=== PATIENT | female | born 1960 | race Hispanic/Latino ===

== ENCOUNTER 2021-03-03 05:56 | Observation (INO) | payer OTHER ==
[2021-03-02 15:03] LABS: BASOPHILS % (AUTO) 0.4 % (0.0-5.0); EOSINOPHILS % (AUTO) 1.9 % (0.0-8.0); HEMATOCRIT 44.5 % (36-48); LYMPHOCYTES % (AUTO) 37.8 % (21.0-51.0); MEAN CORPUSCULAR HEMOGLOBIN 28.9 pg (27.0-33.0); MEAN CORPUSCULAR HGB CONC 32.6 g/dL (32.0-36.0); MEAN CORPUSCULAR VOLUME 88.8 fL (79-99); MONOCYTES % (AUTO) 6.1 % (3.0-13.0); NEUTROPHILS % (AUTO) 53.7 % (40.0-77.0); PLATELET COUNT (AUTO) 206 K/uL (130-400); RED BLOOD CELL COUNT(AUTO) 5.01 MIL/uL (4.00-5.50); WHITE BLOOD COUNT (AUTO) 6.7 K/uL (4.8-10.8)
[2021-03-02 16:39] VITALS: BP 167/79
[2021-03-03] VITALS (24 sets, daily range): BP systolic 121–174; BP diastolic 51–83
[~2021-03-03] VITALS: Ht 160 cm; Wt 75.9 kg
[~2021-03-03 05:56] MED LIST: CEFAZOLIN SODIUM 1 GM VIAL ONE; LACTATED RINGERS 1000ML 1,000 ML IV ONE
[2021-03-03] MEDS ORDERED: MAGNESIUM SULFATE 1 GM/2 ML VIAL ONE (06:54)
[2021-03-03] MEDS ORDERED: KETAMINE 50MG/ML SYRINGE 50 MG/ML DISP.SYRIN IV ONE (06:54)
[2021-03-03] MEDS ORDERED: EPHEDRINE SULFATE 50 MG/ML AMPULE ONE (07:30)
[2021-03-03] MEDS ORDERED: GLYCOPYRROLATE 1 MG/5 ML SYRINGE ONE (07:31)
[2021-03-03] MEDS ORDERED: LACTATED RINGERS 1000ML 1,000 ML IV SCH (08:00)
[2021-03-03] MEDS ORDERED: CEFAZOLIN SODIUM 1 GM VIAL IVP ONE (08:00)
[2021-03-03] MEDS ORDERED: ROCURONIUM 10MG/1ML SYR 10 MG/ML ML ONE (08:06)
[2021-03-03] MEDS ORDERED: PROPOFOL 10 MG/ML 20ML VIAL IV ONE (08:06)
[2021-03-03] MEDS ORDERED: ONDANSETRON 4MG INJ ONE (08:06)
[2021-03-03] MEDS ORDERED: MIDAZOLAM HCL 1 MG/ML 2ML VIAL ONE (08:06)
[2021-03-03] MEDS ORDERED: LIDOCAINE PF 100MG/5ML (2%) SYRINGE 5ML ONE (08:06)
[2021-03-03] MEDS ORDERED: FENTANYL CITRATE PF 50 MCG/1 ML 2ML VIAL ONE ×2 (08:07→08:51)
[2021-03-03] MEDS ORDERED: MEPERIDINE-PF 25 MG/ML SYG ONE (08:29)
[2021-03-03] MEDS ORDERED: KETOROLAC 30MG VIAL (30MG/ML) ONE (08:46)
[2021-03-03] MEDS ORDERED: NEOSTIGMINE 5MG/5ML SYR IV ONE (08:46)
[2021-03-03] MEDS ORDERED: IBUPROFEN 600 MG TABLET PO PRN (10:30)
[2021-03-03] MEDS ORDERED: ONDANSETRON 4MG INJ IVP PRN (10:30)
[2021-03-03] MEDS ORDERED: BISACODYL 10 MG SUPP.RECT RC PRN (10:30)
[2021-03-03] MEDS ORDERED: PROMETHAZINE HCL 25 MG/ML 1ML AMPULE IM PRN (10:30)
[2021-03-03] MEDS: DEXTROSE 5 %-0.45 % NACL 1,000 ML IV PRN ×2 (10:39→17:27)
[2021-03-03] MEDS: PROMETHAZINE HCL 25 MG/ML 1ML AMPULE IM PRN ×2 (12:59→23:06)
[2021-03-03] MEDS: MEPERIDINE-PF 75 MG/ML SYG IM PRN ×2 (13:01→23:14)
[2021-03-03] MEDS: ACETAMINOPHEN WITH CODEINE 1 TAB TAB PO PRN ×2 (17:37→20:22)
[2021-03-03] MEDS: SIMETHICONE 80 MG TAB.CHEW PO PRN (23:24)
[2021-03-03] MEDS: DOCUSATE SODIUM 100 MG CAP PO PRN (23:24)
[2021-03-04] MEDS: DEXTROSE 5 %-0.45 % NACL 1,000 ML IV PRN (00:56)
[2021-03-04 03:22] VITALS: BP 139/76
[2021-03-04] MEDS: HYDROCODONE/ACETAMINOPHEN 5/325 MG TAB PO PRN ×2 (03:29→14:42)
[2021-03-04 05:37] LABS: HEMATOCRIT 37.6 % (36-48); MEAN CORPUSCULAR HEMOGLOBIN 28.7 pg (27.0-33.0); MEAN CORPUSCULAR HGB CONC 32.4 g/dL (32.0-36.0); MEAN CORPUSCULAR VOLUME 88.5 fL (79-99); RED BLOOD CELL COUNT(AUTO) 4.25 MIL/uL (4.00-5.50); RED CELL DISTRIBUTION WIDTH 13.7 % (11.0-15.5); WHITE BLOOD COUNT (AUTO) 13.4 K/uL (4.8-10.8)
[2021-03-04 07:20] VITALS: BP 143/66
[2021-03-04] MEDS: SIMETHICONE 80 MG TAB.CHEW PO PRN ×2 (08:59→20:22)
[2021-03-04] MEDS: DOCUSATE SODIUM 100 MG CAP PO PRN ×2 (08:59→20:22)
[2021-03-04] MEDS: IBUPROFEN 800 MG TAB PO PRN ×2 (08:59→17:42)
[2021-03-04] MEDS: ACETAMINOPHEN WITH CODEINE 1 TAB TAB PO PRN (09:50)
[2021-03-04 11:20] VITALS: BP 139/77
[2021-03-04] MEDS ORDERED: ACETAMINOPHEN WITH CODEINE 1 TAB TAB PO PRN (12:00)
[2021-03-04 17:17] VITALS: BP 156/81
[2021-03-04 19:42] VITALS: BP 142/80
[2021-03-04 23:08] VITALS: BP 100/61
[2021-03-05 03:35] VITALS: BP 123/65
[2021-03-05] MEDS: IBUPROFEN 800 MG TAB PO PRN ×2 (07:05→16:12)
[2021-03-05 07:16] VITALS: BP 134/73
[2021-03-05] MEDS: SIMETHICONE 80 MG TAB.CHEW PO PRN (09:47)
[2021-03-05] MEDS: DOCUSATE SODIUM 100 MG CAP PO PRN (09:47)
[2021-03-05] MEDS: HYDROCODONE/ACETAMINOPHEN 5/325 MG TAB PO PRN (09:48)
[2021-03-05 11:13] VITALS: BP 143/73
== END 2021-03-05 16:20 | disposition home or self-care (01) ==
LOC: DAH 05:56 → WSH 05:57
PROVIDERS: ADMIT Obstetrics & Gynecology; ATTEND Obstetrics & Gynecology
DX: N81.3 Complete uterovaginal prolapse (principal); Z20.822 Contact with and (suspected) exposure to COVID-19; K46.9 Unspecified abdominal hernia without obstruction or gangrene; M06.9 Rheumatoid arthritis, unspecified
CPT/HCPCS: 36415 ×2; 57260; 58262; 85025; 85027; 86850; 86900; 86901; 87426; 96360; 96361 ×2; 96372; A4215; A4221; A4222; A4223; A4344; A4351; A4606; A4663; C1771; G0378 ×56; G0379; J0690; J1885; J2001; J2175 ×3; J2250; J2405; J2550 ×2; J2704; J2710; J3010 ×2; J3475; J3490 ×3; J7120

== ENCOUNTER → 2025-05-15 | Outpatient (CLI) | payer OTHER ==
--- NOTE | 2025-05-15 23:39 | HMCIMG ---
EXAM: ABDOMINAL ULTRASOUND Technique: Grayscale and color Doppler ultrasound of the abdomen performed in longitudinal and transverse planes with targeted evaluation of the liver, gallbladder and biliary tree, pancreas, spleen, kidneys, aorta, and inferior vena cava. Clinical Information: Abnormal laboratory results. Comparison: None. Findings: Liver: Measures 17.0 cm in craniocaudal span, enlarged. Increased echogenicity compatible with diffuse hepatic steatosis. Color Doppler demonstrates hepatopetal portal venous flow. No focal hepatic lesion identified. Gallbladder and biliary tree: Gallbladder wall measures 1 mm (not thickened). Echogenic foci within the gallbladder consistent with gallstones. No sonographic pericholecystic fluid identified. Common bile duct measures 4 mm. Pancreas: Visualized portions are within normal limits; tail partially obscured by bowel gas. Spleen: Measures 10.6 ??? 3.8 ??? 3.6 cm, within normal size limits. Right kidney: Measures 10.6 ??? 4.6 ??? 4.6 cm with preserved cortical echogenicity and thickness; no hydronephrosis. Left kidney: Measures 10.9 ??? 5.3 ??? 4.4 cm with preserved cortical echogenicity and thickness; no hydronephrosis. Aorta and inferior vena cava: Aorta measures 1.4 cm proximally, 1.0 cm mid, and 1.0 cm distally; no aneurysmal dilatation. Inferior vena cava is patent. Peritoneum: No free fluid. Impression: 1. Hepatomegaly with increased hepatic echogenicity, most consistent with hepatic steatosis; correlate with liver function tests and metabolic risk factors. 2. Cholelithiasis without sonographic evidence of acute cholecystitis (gallbladder wall 1 mm, no pericholecystic fluid); correlate clinically for right upper quadrant symptoms. 3. Common bile duct caliber within normal limits at 4 mm. 4. Kidneys, spleen, aorta, and inferior vena cava without acute abnormality; no ascites. /Aidan
== END | disposition home or self-care (01) ==
LOC: RAH 08:07
PROVIDERS: ATTEND Family Medicine
DX: K80.20 Calculus of gallbladder without cholecystitis without obstruction (principal); K76.0 Fatty (change of) liver, not elsewhere classified; R16.0 Hepatomegaly, not elsewhere classified; R79.89 Other specified abnormal findings of blood chemistry
CPT/HCPCS: 76700